=== PATIENT | male | born 1965 | race Caucasian/White ===

== ENCOUNTER → 2016-12-25 | Outpatient (CLI) | payer OTHER ==
--- NOTE | 2016-12-25 16:21 | US ---
HISTORY: Hepatitis-C Study: Abdominal ultrasound: Multiplanar ultrasonographic examination of the abdomen was performed Comparison: None Findings: On the images submitted to ia the liver is of normal size, echogenicity and echotexture. No evidence of intrahepatic biliary duct dilatation is noted. The gallbladder shows no evidence of gallstones, pe richolecystic fluid or gallbladder wall thickening. The common bile duct is normal at 3.1 mm. The kid neys show areas of focal cortical scarring, most likely on the basis of previous ischemic or inflamma tory change. The right kidney measures 5.0 cm in length by 3.3 x 3.6 cm. The left kidney measures 11. 0 cm in length by 6.0 x 5.4 cm. The spleen is normal in its appearance although borderline enlarged. The pancreas was not visualized secondary to bowel gas. The inferior vena cava and aorta are not visu alized secondary to bowel gas. IMPRESSION: 1. The liver is normal by ultrasound. 2. The kidneys show focal cortical scarring bilaterally. The right is much smaller than the left on t he images provided. This may be due to prior ischemic change or inflammatory reaction. Clinical corre lation is recommended. 3. The spleen is borderline enlarged. Reported By:
== END ==
LOC: RAD 15:16
DX: B18.2 Chronic viral hepatitis C (principal)
CPT/HCPCS: 76700